=== PATIENT | female | born 1945 | race Caucasian/White ===

== ENCOUNTER → 2024-05-24 12:41 | Outpatient (REF) | payer MEDICARE, SELFPAY | LOC: HWRAD 12:41 | PROVIDERS: ATTENDING PHYSICIAN Family Medicine; REFERRING PHYSICIAN Internal Medicine Endocrinology, Diabetes & Metabolism | DX: M62.830 Muscle spasm of back (principal) | CPT/HCPCS: 72100; 73502 ==

== ENCOUNTER → 2025-01-26 09:18 | Outpatient (REF) | payer MEDICARE, SELFPAY | LOC: HWRAD 09:18 | PROVIDERS: ATTENDING PHYSICIAN Family Medicine | DX: R59.9 Enlarged lymph nodes, unspecified (principal) | CPT/HCPCS: 76536 ==